=== PATIENT | female | born 1945 | race Asian ===

== ENCOUNTER 2018-12-22 17:48 | Emergency (ER) | payer MEDICARE, OTHER ==
[~2018-12-22] VITALS: Ht 152.4 cm; Wt 44.1 kg
[~2018-12-22 17:48] MED LIST: BENA10TA12 PO; CALC-719 PO; LORA10TA7 PO; NOCURR
[2018-12-22] MEDS ORDERED: ATOR10TA84 PO (18:01)
[2018-12-22] MEDS ORDERED: BACITRACIN 0.9 GM PACKET OINTMENT TP ONE (20:30)
[2018-12-22 21:20] VITALS: BP 140/80
== END 2018-12-22 21:34 | disposition home or self-care (01) ==
LOC: EMS 17:48
DX: S81.012A Laceration without foreign body, left knee, initial encounter (principal); S81.011A Laceration without foreign body, right knee, initial encounter; S43.402A Unspecified sprain of left shoulder joint, initial encounter; I10 Essential (primary) hypertension; W19.XXXA Unspecified fall, initial encounter; Y93.89 Activity, other specified; Y92.89 Other specified places as the place of occurrence of the external cause; Y99.8 Other external cause status

== ENCOUNTER 2021-06-05 09:08 | Emergency (ER) | payer MEDICARE, OTHER ==
[~2021-06-05] VITALS: Ht 142.2 cm; Wt 43.2 kg
[~2021-06-05 09:08] MED LIST changes: +ATOR10TA84 PO; -BENA10TA12 PO; +BENA10TA77 PO
[2021-06-05] MEDS ORDERED: PERTUSS(ACELL),DIPH,TET VAC/PF 0.5 ML SYRINGE IM. ONE (09:45)
[2021-06-05] MEDS ORDERED: BACITRACIN 0.9 GM PACKET OINTMENT TP ONE (09:45)
[2021-06-05 13:15] VITALS: BP 146/72
== END 2021-06-05 13:36 | disposition home or self-care (01) ==
LOC: EDUNIT# 09:08 → EMS 09:16
DX: S20.211A Contusion of right front wall of thorax, initial encounter (principal); S80.211A Abrasion, right knee, initial encounter; S50.311A Abrasion of right elbow, initial encounter; I10 Essential (primary) hypertension; Z79.899 Other long term (current) drug therapy; W18.39XA Other fall on same level, initial encounter; Y93.89 Activity, other specified; Y92.89 Other specified places as the place of occurrence of the external cause; Y99.8 Other external cause status
CPT/HCPCS: 70450; 71250; 72125; 73080; 73562; 82962; 90471; 90715; 99284; G0238